=== PATIENT | female | born 1945 | race Caucasian/White ===

== ENCOUNTER 2017-08-17 09:50 | Day surgery (SDC) | payer MEDICARE ==
[~2017-08-17 09:50] MED LIST: Acetaminophen TAB* 325 MG PO PRN; Buffered Lidocaine 0.9% SYRIN* 5 ML/SYR SYRINGE INTRADERM ONE
[2017-08-17] MEDS ORDERED: fentaNYL* 50 MCG/ML 2 ML VIAL (100 MCG VIAL) ONE (11:27)
[2017-08-17] MEDS ORDERED: Midazolam* 1 MG/ML 2 ML VIAL (2 MG) ONE (11:27)
[2017-08-17] MEDS ORDERED: Neomycin/Polymy/Dex OPHTH.OIN* 3.5 GM ONE (11:51)
[2017-08-17] MEDS ORDERED: Tropicamide 1% OPTH.SOL* BTL ONE (11:51)
[2017-08-17] MEDS ORDERED: Povidone Iodine 5% OPTH* 30 ML BTL ONE (11:51)
[2017-08-17] MEDS ORDERED: Ketorolac 0.5% OPHTH (NF) 0.5 % 5 ML BTL ONE (11:51)
[2017-08-17] MEDS ORDERED: Cyclopentolate 1% OPTH.SOL* 2 ML BTL ONE (11:51)
[2017-08-17] MEDS ORDERED: Tetracaine 0.5% OPTH.SOL 4 ML* 1 DROP BTL ONE (11:51)
[2017-08-17] MEDS ORDERED: Phenylephrine 2.5% OPTH.SOL* 2 ML BTL ONE (11:51)
[2017-08-17] MEDS ORDERED: Lidocaine 1% MPF* 2 ML VIAL ONE (11:51)
[2017-08-17] MEDS ORDERED: acetaZOLAMIDE TAB* 250 MG ONE (11:51)
[2017-08-17 12:42] VITALS: BP 153/89
--- NOTE | 2017-08-18 09:42 | OP ---
DATE OF OPERATION: 08/17/17 - [facility] DATE OF : 45 SURGEON: Sidney Cano MD ANESTHESIA: Monitored anesthesia care. PRE-OP DIAGNOSIS: Cataract, right eye. POST-OP DIAGNOSIS: Cataract, right eye. OPERATIVE PROCEDURE: Extracapsular cataract extraction of the right eye with intraocular lens implant. IMPLANTS: SN60WF 21.0 diopter lens to the right eye. COMPLICATIONS: None. DESCRIPTION OF PROCEDURE: The patient was given phenylephrine 2.5% and cyclopentolate 1% eye drops to the operative eye in the preoperative area. The patient was brought to the operating room where a time-out was taken to identify the correct patient, site, and side of surgery. The patient's right eye was prepped and draped in the usual sterile fashion with 5% Betadine. A second time-out was taken to verify the correct patient, site, and side of surgery and correct lens selection. A lid speculum was placed to the right eye. A 1-mm paracentesis blade was used to make a clear corneal incision in the superotemporal position. Preservative free 1% lidocaine was injected into the anterior chamber. DisCoVisc was then injected into the anterior chamber. A 2.75 mm keratome blade was used to make a triplanar incision at the inferotemporal position. A cystotome initiated a capsulorrhexis which was completed with Utrata forceps in a continuous and curvilinear manner. Hydrodissection of the lens was performed with BSS on a cannula. The lens could be spun in a capsular bag. The phacoemulsification handpiece was used with a zvxzim-wxe-bzknivs technique to remove the nucleus in its entirety with 18.03 CDE. The I/A handpiece then removed the residual cortical lens material. DisCoVisc was injected to inflate the capsular bag. The planned SN60WF 21.0 diopter lens was injected into the capsular bag. The residual DisCoVisc was removed from the eye with the I/A handpiece. The corneal incisions were hydrated and no leaks occurred at physiologic pressure around 20 mmHg per palpation. The lid speculum was removed and drapes removed. Maxitrol ointment was placed to the surface of the operative eye. An adhesive patch and shield was then placed on the operative eye. The patient was taken to the postoperative area in stable condition. [id number]/[facility] #: [id number] MTDD
== END 2017-08-17 12:57 | disposition home or self-care (01) ==
LOC: OREAST 09:50
PROVIDERS: ATTEND Student in an Organized Health Care Education/Training Program
DX: H25.11 Age-related nuclear cataract, right eye (principal); H35.371 Puckering of macula, right eye; F17.210 Nicotine dependence, cigarettes, uncomplicated; I25.10 Atherosclerotic heart disease of native coronary artery without angina pectoris; Z95.5 Presence of coronary angioplasty implant and graft; I10 Essential (primary) hypertension
CPT/HCPCS: A9270-GY; J2250; J3010; V2632

== ENCOUNTER 2017-08-24 10:28 | Day surgery (SDC) | payer MEDICARE ==
[~2017-08-24 10:28] MED LIST changes: +Cyclopentolate 1% OPTH.SOL* 2 ML BTL ONE; +Ketorolac 0.5% OPHTH (NF) 0.5 % 5 ML BTL ONE; +Lidocaine 1% MPF* 2 ML VIAL ONE; +Neomycin/Polymy/Dex OPHTH.OIN* 3.5 GM ONE; +Phenylephrine 2.5% OPTH.SOL* 2 ML BTL ONE; +Povidone Iodine 5% OPTH* 30 ML BTL ONE; +Tetracaine 0.5% OPTH.SOL 4 ML* 1 DROP BTL ONE; +Tropicamide 1% OPTH.SOL* BTL ONE; +acetaZOLAMIDE TAB* 250 MG ONE
[2017-08-24] MEDS ORDERED: Midazolam* 1 MG/ML 2 ML VIAL (2 MG) ONE (12:41)
[2017-08-24] MEDS ORDERED: Propofol* 10 MG/ML 20 ML BTL IV PUSH ONE (12:55)
[2017-08-24 13:46] VITALS: BP 109/66
--- NOTE | 2017-08-25 03:51 | OP ---
DATE OF OPERATION: 08/24/17 - [facility] DATE OF : 45 SURGEON: Sidney Cano MD ANESTHESIOLOGIST: Richar Moody DO ANESTHESIA: Monitored anesthesia care. PRE-OP DIAGNOSIS: Cataract, left eye. POST-OP DIAGNOSIS: Cataract, left eye. OPERATIVE PROCEDURE: Extracapsular cataract extraction of the left eye with intraocular lens implant. IMPLANTS: SN60WF 20.0 diopter lens to the left eye. COMPLICATIONS: None. DESCRIPTION OF PROCEDURE: The patient was given phenylephrine 2.5% and cyclopentolate 1% eyedrops to the operative eye in the preoperative area. The patient was brought to the operating room, where a time-out was taken to identify the correct patient, site and side of surgery. The patient's left eye was prepped and draped in the usual sterile fashion with 5% Betadine. A second time-out was taken to verify the correct patient, site and side of surgery and correct lens selection. A lid speculum was placed to the left eye. A 1-mm paracentesis blade was used to make a clear corneal incision in the inferotemporal position. Preservative-free 1% lidocaine was injected into the anterior chamber. DisCoVisc was then injected into the anterior chamber. A 2.75-mm keratome blade was used to make a triplanar incision at the superotemporal position. A cystotome initiated a capsulorrhexis, which was completed with Utrata forceps in a continuous and curvilinear manner. Hydrodissection of the lens was performed with BSS on a cannula. The lens could be spun in the capsular bag. The phacoemulsification handpiece was used with a xahbzx-fdw-fqcqfop technique to remove the nucleus in its entirety with 15.70 CDE. The I/A handpiece then removed the residual cortical lens material. DisCoVisc was injected to inflate the capsular bag. The planned SN60WF 20.0 diopter lens was injected into the capsular bag. The residual DisCoVisc was removed from the eye with the I/A handpiece. The corneal incisions were hydrated and no leaks occurred at physiologic pressure around 20 mmHg per palpation. The lid speculum was removed and drapes removed. Maxitrol ointment was placed to the surface of the operative eye. An adhesive patch and shield was placed on the operative eye. The patient was taken to the postoperative area in stable condition. [id number] #: [id number] MTDD
== END 2017-08-24 13:36 | disposition home or self-care (01) ==
LOC: OREAST 10:28
PROVIDERS: ATTEND Student in an Organized Health Care Education/Training Program
DX: H25.12 Age-related nuclear cataract, left eye (principal); H35.371 Puckering of macula, right eye; F17.210 Nicotine dependence, cigarettes, uncomplicated; I10 Essential (primary) hypertension; I25.10 Atherosclerotic heart disease of native coronary artery without angina pectoris; H52.229 Regular astigmatism, unspecified eye; Z95.5 Presence of coronary angioplasty implant and graft; M19.90 Unspecified osteoarthritis, unspecified site
CPT/HCPCS: A9270-GY; J2250; J2704; V2632

== ENCOUNTER 2023-08-04 09:50 | Observation (INO) ==
[~2023-08-04 09:50] MED LIST changes: -Acetaminophen TAB* 325 MG PO PRN; -Buffered Lidocaine 0.9% SYRIN* 5 ML/SYR SYRINGE INTRADERM ONE; +Buffered Lidocaine 1% SYRIN 1 ml INTRADERM ONE; -Cyclopentolate 1% OPTH.SOL* 2 ML BTL ONE; -Ketorolac 0.5% OPHTH (NF) 0.5 % 5 ML BTL ONE; +Lactated Ringers 1000 ml BAG 1,000 ML IV SCH; -Lidocaine 1% MPF* 2 ML VIAL ONE; +Naloxone 0.4 mg VIAL 0.4 mg/ml 1 ml VIAL IV PRN; -Neomycin/Polymy/Dex OPHTH.OIN* 3.5 GM ONE; +Ondansetron 4 mg VIAL 2 MG/ML 2 ml VIAL IV PRN; -Phenylephrine 2.5% OPTH.SOL* 2 ML BTL ONE; -Povidone Iodine 5% OPTH* 30 ML BTL ONE; -Tetracaine 0.5% OPTH.SOL 4 ML* 1 DROP BTL ONE; -Tropicamide 1% OPTH.SOL* BTL ONE; -acetaZOLAMIDE TAB* 250 MG ONE; +fentaNYL 100 mcg/2 ml 50 MCG/ML VIAL IV PRN
[2023-08-04] MEDS ORDERED: Ondansetron 4 mg VIAL 2 MG/ML 2 ml VIAL ONE (10:48)
[2023-08-04] MEDS ORDERED: Lidocaine 2% PF 5 ML VIAL ONE (10:48)
[2023-08-04] MEDS ORDERED: Glycopyrrolate IV 0.2 MG/ML 1 ML VIAL ONE (10:48)
[2023-08-04] MEDS ORDERED: Propofol 10 MG/ML 20 ML BTL ONE ×2 (10:48→15:03)
[2023-08-04 10:49] LABS: Rapid COVID-19 Molecular Undetected (Undetected)
[2023-08-04] MEDS ORDERED: Midazolam 2 mg/2 ml VIAL 1 mg/ml 2 ml VIAL (2 mg) ONE ×2 (10:49→12:54)
[2023-08-04] MEDS ORDERED: fentaNYL 100 mcg/2 ml 50 MCG/ML VIAL ONE (10:49)
[2023-08-04] MEDS ORDERED: Rocuronium 50 mg VIAL 10 mg/ml 5 ml VIAL (50 mg) ONE (10:56)
[2023-08-04] MEDS ORDERED: Tranexamic Acid 1 GM/100ML BAG 2,000 MG/200 ML BAG IV ONE (10:59)
[2023-08-04] MEDS ORDERED: ceFAZolin 2 GM PREMIX 2 GM/50 ML BAG ONE (10:59)
[2023-08-04] MEDS ORDERED: Dexamethasone IV 4 MG/ML VIAL 1 ml VIAL ONE ×2 (11:22→13:50)
[2023-08-04] MEDS ORDERED: ROPIVACAINE 5 MG/ML 30 ML BTL (0.5%) ONE ×2 (11:22→12:21)
[2023-08-04] MEDS ORDERED: KETAMINE HCL 10 MG/ML 20 ml VIAL (200 MG) ONE (13:57)
[2023-08-04] MEDS ORDERED: Lactulose 30 ml UDC PO PRN (14:33)
[2023-08-04] MEDS ORDERED: Ondansetron 4 mg VIAL 2 MG/ML 2 ml VIAL IV PRN (14:33)
[2023-08-04] MEDS ORDERED: Magnesium Hydroxide LIQ 30 ML UDC PO PRN (14:33)
[2023-08-04] MEDS ORDERED: Morphine 2 MG/ML SYRINGE IV PRN (14:33)
[2023-08-04] MEDS ORDERED: Ondansetron ODT 4 mg TAB 4 MG TAB PO PRN (14:33)
[2023-08-04] MEDS: Lactated Ringers 1000 ml BAG 1,000 ML IV SCH (17:00)
[2023-08-04] MEDS ORDERED: Aspirin EC 81 mg TAB.EC (enteric coated) PO SCH (21:00)
[2023-08-04] MEDS ORDERED: Cholecalciferol (VIT D3) 1,000 unit TAB PO SCH (21:00)
[2023-08-04] MEDS: Magnesium Hydroxide LIQ 30 ML UDC PO SCH (21:22)
[2023-08-04] MEDS: ceFAZolin 1 GM ADVAN 1 GM in NS 0.9% 50 ML 50 ML IVPB SCH (21:24)
[2023-08-05] MEDS: Lactated Ringers 1000 ml BAG 1,000 ML IV SCH (03:57)
[2023-08-05] MEDS: HYDROcodone/ACETAMIN 5/325 mg TAB PO PRN ×2 (05:27→14:05)
[2023-08-05] MEDS: ceFAZolin 1 GM ADVAN 1 GM in NS 0.9% 50 ML 50 ML IVPB SCH ×2 (05:28→12:48)
[2023-08-05 05:55] LABS: Platelet Count 164 10^3/uL (150-450)
[2023-08-05 06:12] LABS: Calcium 8.8 mg/dL (8.6-10.3); Creatinine, Serum 1.24 mg/dL (0.51-0.95); Potassium 4.6 mmol/L (3.5-5.0); eGFR CKD-EPI 44.5 (>60)
[2023-08-05 06:21] LABS: Hematocrit 30.3 % (35-45); Hemoglobin 10.4 g/dL (11.5-14.3); Mean Platelet Volume 9.7 fL (7.5-11.2)
[2023-08-05] MEDS ORDERED: Vitamin THERAPEUTIC TAB PO SCH (09:00)
[2023-08-05] MEDS: Magnesium Hydroxide LIQ 30 ML UDC PO SCH (09:10)
[2023-08-05 09:55] VITALS: BP 132/69
== END 2023-08-05 14:33 | disposition home or self-care (01) ==
LOC: SSU 09:50 → OR 09:50 → EDSTATUS 12:45
PROVIDERS: ADMIT Orthopaedic Surgery Adult Reconstructive Orthopaedic Surgery; ATTEND Orthopaedic Surgery Adult Reconstructive Orthopaedic Surgery